=== PATIENT | female | born 1990 | race African-American/Black ===

== ENCOUNTER 2016-11-15 05:40 | Inpatient (IN) | payer OTHER ==
[~2016-11-15] VITALS: Ht 160 cm; Wt 163.0 kg
[~2016-11-15 05:40] MED LIST: CHEWABLE-VITE1 EACH PO
[2016-11-15] MEDS ORDERED: CORDRAN TP (06:05)
[2016-11-15 06:07] VITALS: BP 129/73
[2016-11-15 06:27] LABS: POINT-OF-CARE METER ID UU14174212
[2016-11-15 13:23] VITALS: BP 136/75
[2016-11-15 16:29] VITALS: BP 133/86
[2016-11-15 17:01] LABS: POINT-OF-CARE METER ID UU14162508
[2016-11-15 19:02] VITALS: BP 131/79
[2016-11-15 22:58] VITALS: BP 132/75
[2016-11-16 03:03] VITALS: BP 123/72
[2016-11-16 06:13] LABS: POINT-OF-CARE METER ID UU14162508
[2016-11-16 07:05] VITALS: BP 129/78
[2016-11-16 07:22] LABS: HEMATOCRIT 37.6 % (36.0-46.0); MCH 28.2 PG (29.0-34.0); MCHC 34.8 G/DL (30.0-36.0); MEAN PLAT.VOLUME 11.1 uM^3 (9.5-12.4); PLATELET COUNT 308 K/uL (156-360); RBC DIS.WIDTH-CV 13.5 % (11.8-14.6); RBC DIS.WIDTH-SD 39.3 % (39-53); RED BLOOD COUNT 4.64 M/uL (3.80-5.20); WHITE BLOOD COUNT 12.1 K/uL (4.1-10.2)
[2016-11-16 07:54] LABS: ANION GAP 11 MEQ/L (2-14); CHLORIDE 104 MEQ/L (99-109); GFR ESTIMATE (CALCULATED) > 59 mL/min/; GLUCOSE 103 mg/dL (70-99); MAGNESIUM 1.8 mg/dl (1.3-2.7); SAMPLE HEMOLYSIS CHECK 1; SAMPLE ICTERIC CHECK 0; SAMPLE LIPEMIA CHECK 0; SODIUM 140 MEQ/L (136-147); UREA NITROGEN (BUN) 6 mg/dL (9-23)
[2016-11-16] MEDS ORDERED: HYDROCODON-ACE1 EAC7 PO (08:56)
== END 2016-11-16 09:45 | disposition home or self-care (01) | DRG 621 ==
LOC: 2SOUTH 05:40 → 2EASTP 12:50 → 2SOUTH 14:17 → 2EASTP 11-16 09:45
PROVIDERS: Surgery
PROC: 0DB64Z3 Excision of Stomach, Percutaneous Endoscopic Approach, Vertical (ICD-10-PCS; principal; 2016-11-15)
DX: E66.01 Morbid (severe) obesity due to excess calories (principal); F41.9 Anxiety disorder, unspecified; F32.9 Major depressive disorder, single episode, unspecified; K21.9 Gastro-esophageal reflux disease without esophagitis; J45.909 Unspecified asthma, uncomplicated; Z68.44 Body mass index [BMI] 60.0-69.9, adult
CPT/HCPCS: 80048; 82948; 83735; 84100; 85027; C9113; J0131; J0330; J0690; J1100; J1170; J1644; J1650; J1815; J2250; J2270; J2405; J2550; J2710; J2765; J3010; J3480; J7120; S0020